=== PATIENT | female | born 1935 | race Caucasian/White ===

== ENCOUNTER 2017-01-05 12:50 | Emergency (ER) | payer MEDICARE, OTHER ==
[~2017-01-05] VITALS: Ht 172.7 cm; Wt 125.6 kg
[2017-01-05] MEDS ORDERED: ASPIRIN81 MG PO (18:29)
[2017-01-05] MEDS ORDERED: CERTAVITE SR-AN1 TAB PO (18:30)
[2017-01-05] MEDS ORDERED: LIPITOR80 MG PO (18:30)
[2017-01-05] MEDS ORDERED: PRINIVIL20 MG PO (18:31)
[2017-01-05] MEDS ORDERED: HYDROCHLOROTH12.5 MG PO (18:31)
[2017-05-14] MEDS ORDERED: LOPRESSOR50 MG PO (16:19)
[2017-05-14] MEDS ORDERED: ELIQUIS5 MG PO (16:19)
== END 2017-01-05 16:00 | disposition short-term general hospital (02) ==
LOC: ER 12:50
DX: I48.91 Unspecified atrial fibrillation (principal); N28.9 Disorder of kidney and ureter, unspecified; R74.8 Abnormal levels of other serum enzymes; I25.10 Atherosclerotic heart disease of native coronary artery without angina pectoris; I71.4 Abdominal aortic aneurysm, without rupture; I10 Essential (primary) hypertension; E78.00 Pure hypercholesterolemia, unspecified; Z79.82 Long term (current) use of aspirin; Z79.899 Other long term (current) drug therapy; Z90.49 Acquired absence of other specified parts of digestive tract; Z90.710 Acquired absence of both cervix and uterus; Z87.891 Personal history of nicotine dependence
CPT/HCPCS: A9270

== ENCOUNTER → 2017-01-20 | Outpatient (CLI) | payer MEDICARE, OTHER ==
[~2017-01-20] MED LIST: ASPIRIN81 MG PO; CERTAVITE SR-AN1 TAB PO; ELIQUIS5 MG PO; HYDROCHLOROTH12.5 MG PO; LIPITOR80 MG PO; LOPRESSOR50 MG PO; PRINIVIL20 MG PO
== END | disposition short-term general hospital (02) ==
LOC: CLCARD 08:31
DX: I25.10 Atherosclerotic heart disease of native coronary artery without angina pectoris (principal); I49.5 Sick sinus syndrome; I35.0 Nonrheumatic aortic (valve) stenosis; I48.0 Paroxysmal atrial fibrillation; J44.9 Chronic obstructive pulmonary disease, unspecified; I10 Essential (primary) hypertension; E78.5 Hyperlipidemia, unspecified; E66.9 Obesity, unspecified; R94.31 Abnormal electrocardiogram [ECG] [EKG]